=== PATIENT | female | born 1995 | race Caucasian/White ===

== ENCOUNTER → 2020-10-08 | Outpatient (CLI) | payer OTHER ==
[~2020-10-08] MED LIST: PROHANCE 279.3MG/ML 5ML VIAL ONE
--- NOTE | 2020-10-10 12:09 | REPVR ---
PROCEDURE INFORMATION: Exam: MR Head Without and With Contrast Exam date and time: 10/08/2020 3:29 PM Age: 25 years old Clinical indication: Primary amenorrhea TECHNIQUE: Imaging protocol: MR of the head without and with intravenous contrast. Contrast material: PROHANCE; Contrast volume: 10 ml; Contrast route: INTRAVENOUS (IV); COMPARISON: No relevant prior studies available. FINDINGS: Brain: Normal. No acute infarct. No hemorrhage. No significant white matter disease. No edema. Pituitary/sella: High-resolution pre and post-contrast imaging through the pituitary gland/sella demonstrates a normal pituitary gland. The optic chiasm is midline. The cavernous sinuses are symmetric. Normal flow voids are present within the cavernous carotid arteries. Cerebral ventricles: Normal. No ventriculomegaly. Bones/joints: Unremarkable. Paranasal sinuses: Normal as visualized. No acute sinusitis. Mastoid air cells: Normal as visualized. No mastoid effusion. Orbital cavity: Unremarkable. Soft tissues: Unremarkable. IMPRESSION: No acute findings. Normal pituitary gland. Electronically signed by: Enrique Han On 10/10/2020 12:08:47 PM
== END ==
LOC: M PLAIMG 13:38
PROVIDERS: ATTEND Internal Medicine Endocrinology, Diabetes & Metabolism
DX: N91.0 Primary amenorrhea (principal)
CPT/HCPCS: 70553; A9576